=== PATIENT | female | born 1970 | race Caucasian/White ===

== ENCOUNTER 2021-12-22 11:46 | Outpatient (CLI) | payer OTHER, SELFPAY ==
--- NOTE | ~2021-12-22 | XR_ITS ---
XR chest 2V DATE: 12/22/2021 12:10 INDICATION: Dyspnea TECHNIQUE: PA and lateral views COMPARISON: None FINDINGS: Normal heart size. No hilar or mediastinal enlargement. No pulmonary infiltrate or consolid ation, pleural effusion or pulmonary vascular congestion or pneumothorax. Mild levoscoliosis of the thoracic spine. IMPRESSION: No active cardiopulmonary disease Reviewed, dictated and finalized at location B.
[2021-12-22 13:08] LABS: D Dimer 0.45 ug/mL (<0.48)
== END 2021-12-22 11:47 | disposition home or self-care (01) ==
PROVIDERS: PCP Physician Assistant; Visit Provider Physician Assistant
DX: R06.00 Dyspnea, unspecified (principal); M41.9 Scoliosis, unspecified
CPT/HCPCS: 36415; 71046; 85380

== ENCOUNTER 2023-11-18 12:55 | Outpatient (CLI) | payer BC, SELFPAY ==
[2023-11-18 19:53] LABS: SARS-CoV-2 RNA PCR Negative (Negative)
== END 2023-11-18 12:56 | disposition home or self-care (01) ==
LOC: ANHGOSHLAB 12:56
PROVIDERS: PCP Family Medicine; Visit Provider Family Medicine
DX: R53.83 Other fatigue (principal); R68.89 Other general symptoms and signs; Z20.822 Contact with and (suspected) exposure to COVID-19
CPT/HCPCS: 87635

== ENCOUNTER 2024-02-21 00:22 | Day surgery (SDC) | payer BC, SELFPAY ==
--- NOTE | 2023-12-10 14:34 | SUR.PREOP ---
Patient called to reschedule his procedure due to doctor being unavailable. Message left on pt's vm requesting a call back.
[2024-02-13 11:09] VITALS: BMI 37.5
[2024-02-21 10:08] VITALS: BP 152/96; PULSE 107; RESP 18; TEMP 36.1; O2SAT 98
--- NOTE | 2024-02-21 10:24 | WPDANESEPPF ---
Anes - Initial Pre Proc Eval Procedure: Operation Date: 02/21/24 11:30 Proposed Procedures p Esophagogastroduodenoscopy & Colonoscopy - Jaron Christiansen MD Date/Time: 02/21/24 10:24 Surgeon: Jaron Christiansen MD Pre Op Diagnosis: Other fecal abnormalities Patient Data Age: 53 Gender: F Height: 1.57 m Weight: 88.2 kg Last Vital Signs Temp 36.1 C L 02/21/24 10:08 Pulse 107 H 02/21/24 10:08 Resp 18 02/21/24 10:08 BP 152/96 H 02/21/24 10:08 Pulse Ox 98 02/21/24 10:08 O2 Del Method Room Air 02/21/24 10:08 Allergies Allergy/AdvReac Type Severity Reaction Status Date / Time shellfish derived Allergy Severe Anaphylaxis Verified 02/21/24 10:07 ERYTHROMYCINS Allergy Mild Rash Uncoded 02/21/24 10:07 Home Medications Medication Instructions Recorded Confirmed Type bupropion HCl 300 mg 24 hr tablet, 300 mg PO QAM #90 tabs 09/23/23 02/13/24 Rx extended release cetirizine 10 mg capsule (Zyrtec) 10 mg PO DAILY 09/23/23 02/21/24 History cholecalciferol (vitamin D3) 25 25 mcg PO DAILY 09/23/23 02/21/24 History mcg (1,000 unit) capsule epinephrine 0.3 mg/0.3 mL 0.3 mg (0.3 mL) IM ONCE #2 ea 09/23/23 02/21/24 Rx injection, auto-injector esomeprazole magnesium 20 mg 20 mg PO DAILY 09/23/23 02/21/24 History capsule,delayed release lisinopril 40 mg tablet 40 mg PO DAILY #90 tabs 09/23/23 02/21/24 Rx lutein 20 mg capsule 20 mg PO DAILY 09/23/23 02/21/24 History magnesium glycinate 200 mg PO DAILY 09/23/23 02/21/24 History mecobalamin (vitamin B12) 500 mcg 500 mcg PO DAILY 09/23/23 02/21/24 History chewable tablet mometasone 100 mcg/actuation HFA 1 puff inhalation BID #13 grams 09/23/23 02/21/24 Rx aerosol inhaler (Asmanex HFA) nystatin 100,000 unit/mL oral 5 ml buccal TID #473 mL 09/23/23 02/21/24 Rx suspension turmeric root extract 500 mg 500 mg PO DAILY 09/23/23 02/21/24 History capsule hydrochlorothiazide 25 mg tablet See Rx Instructions .Route 12/18/23 02/21/24 Rx .COMPLEX #90 tabs Patient hx anesthesia problems: none Family hx anesthesia problems: none Results Review: All pre-operative results and documents have been reviewed as part of the pre-operative evaluation. PMFSH Past Medical History Medical History Pyloric stenosis Surgical History Surgical History H/O section Hx of tonsillectomy Family History Family History Mother Asthma Depression Sibling Asthma Hypertension Depression Daughter Asthma Depression Grandparent Malignant neoplasm of prostate Skin cancer Diabetes mellitus Hypertension Depression Heart disease Social History Social History Smoking status: Never smoker Alcohol intake: current Alcohol use details: 4-5 drinks/ yr Substance use: never Substance use type: does not use Do You Feel Safe in your Home?: Yes Lack of Transportation: No Lack of Food: Never True Current Housing: I Have Housing Concerned About Future Housing: No Difficulty Paying Gas/Electric Bills: No Difficulty Paying for Meds: No Currently Unemployed: No Education: Bachelor's Degree Difficulty w/ Childcare or Family Care: No Living arrangements: with family Spiritual care concerns: No Anes - Eval Final PreProcedure Day of Procedure 02/21/24 10:24 Patient weight: normal Heart: regular rate and rhythm Lungs: clear to auscultation Airway: Mallampati scale class II Neurological: alert and oriented Last oral intake: >/= 8 hours ASA classification: II Emergent: no Anesthetic plan: proceed Anesthesia type and monitoring: general GIVS and standard monitoring Results Review: All pre-operative results and documents have been reviewed as part of the pr
[2024-02-21] MEDS: LACTATED RINGERS 1,000 ML 150 ML IV CONT (10:25)
--- NOTE | 2024-02-21 10:50 | PM.HPGS ---
History of Present Illness History of Present Illness Consent: Risks, benefits, and alternatives have been discussed and questions answered. Patient agrees to proceed with procedure. Chief complaint: Other fecal abnormalities Narrative: Mira Buitrago is a 53 year old female here for first egd/colonoscopy, + cologuard, also h/o pyloric stenosis as child s/p surgery, recently with choking after eating and abdominal discomfort with hiccups, using esomeprazole. Brother with h/o EoE Review of Systems Review of Systems: All systems reviewed & are unremarkable except as noted in HPI and below PMFSH Past Medical History Medical History (Updated 02/21/24 @ 10:52 by Jaron Christiansen MD) Pyloric stenosis Surgical History Surgical History H/O section Hx of tonsillectomy Family History Family History Mother Asthma Depression Sibling Asthma Hypertension Depression Daughter Asthma Depression Grandparent Malignant neoplasm of prostate Skin cancer Diabetes mellitus Hypertension Depression Heart disease Social History Social History Smoking status: Never smoker Alcohol intake: current Alcohol use details: 4-5 drinks/ yr Substance use: never Substance use type: does not use Do You Feel Safe in your Home?: Yes Lack of Transportation: No Lack of Food: Never True Current Housing: I Have Housing Concerned About Future Housing: No Difficulty Paying Gas/Electric Bills: No Difficulty Paying for Meds: No Currently Unemployed: No Education: Bachelor's Degree Difficulty w/ Childcare or Family Care: No Living arrangements: with family Spiritual care concerns: No Meds Home Medications and Allergies Home Medications Medication Instructions Recorded Confirmed Type bupropion HCl 300 mg 24 hr tablet, 300 mg PO QAM #90 tabs 09/23/23 02/13/24 Rx extended release cetirizine 10 mg capsule (Zyrtec) 10 mg PO DAILY 09/23/23 02/21/24 History cholecalciferol (vitamin D3) 25 25 mcg PO DAILY 09/23/23 02/21/24 History mcg (1,000 unit) capsule epinephrine 0.3 mg/0.3 mL 0.3 mg (0.3 mL) IM ONCE #2 ea 09/23/23 02/21/24 Rx injection, auto-injector esomeprazole magnesium 20 mg 20 mg PO DAILY 09/23/23 02/21/24 History capsule,delayed release lisinopril 40 mg tablet 40 mg PO DAILY #90 tabs 09/23/23 02/21/24 Rx lutein 20 mg capsule 20 mg PO DAILY 09/23/23 02/21/24 History magnesium glycinate 200 mg PO DAILY 09/23/23 02/21/24 History mecobalamin (vitamin B12) 500 mcg 500 mcg PO DAILY 09/23/23 02/21/24 History chewable tablet mometasone 100 mcg/actuation HFA 1 puff inhalation BID #13 grams 09/23/23 02/21/24 Rx aerosol inhaler (Asmanex HFA) nystatin 100,000 unit/mL oral 5 ml buccal TID #473 mL 09/23/23 02/21/24 Rx suspension turmeric root extract 500 mg 500 mg PO DAILY 09/23/23 02/21/24 History capsule hydrochlorothiazide 25 mg tablet See Rx Instructions .Route 12/18/23 02/21/24 Rx .COMPLEX #90 tabs Allergies Allergy/AdvReac Type Severity Reaction Status Date / Time shellfish derived Allergy Severe Anaphylaxis Verified 02/21/24 10:07 ERYTHROMYCINS Allergy Mild Rash Uncoded 02/21/24 10:07 Vital Signs Vital Signs - 24 hr 02/21/24 10:08 Temperature 97 F L Pulse Rate 107 H Respiratory Rate 18 Blood Pressure 152/96 H Pulse Oximetry 98 Oxygen Delivery Room Air Exam Const: General: comfortable and no acute distress HENMT: Face/Nose/Sinus: Normal nares present Eyes: General: appearance normal, both eyes and all related structures Neck: Neck: no JVD Resp: Auscultation: clear to auscultation bilaterally Cardio: Rate: regular rate Rhythm: regular rhythm GI: Inspection: non-distended GI Palp: Yes Soft to palpation Skin: General skin exam: normal colo
[2024-02-21 11:13] VITALS: BP 85/42; PULSE 89; RESP 18; O2SAT 99
--- NOTE | 2024-02-21 11:15 | SUR.OPER ---
EGD START 1053, END 1059 COLONOSCOPY START 1104, END 1112
[2024-02-21 11:23] VITALS: BP 87/39; PULSE 80; RESP 18; O2SAT 99
[2024-02-21 11:33] VITALS: BP 107/46; PULSE 74; RESP 18; O2SAT 100
== END 2024-02-21 11:44 | disposition home or self-care (01) ==
PROVIDERS: PCP Family Medicine; Visit Provider Internal Medicine Gastroenterology
PROC: 0DJ08ZZ Inspection of Upper Intestinal Tract, Via Natural or Artificial Opening Endoscopic (ICD-10-PCS; CPT 43235; principal; 2024-02-21 11:30)
DX: R19.5 Other fecal abnormalities (principal); Z87.19 Personal history of other diseases of the digestive system; D12.8 Benign neoplasm of rectum; D12.4 Benign neoplasm of descending colon; K64.8 Other hemorrhoids; K29.50 Unspecified chronic gastritis without bleeding; K20.90 Esophagitis, unspecified without bleeding; K21.9 Gastro-esophageal reflux disease without esophagitis; R13.19 Other dysphagia; R10.13 Epigastric pain; R06.6 Hiccough
CPT/HCPCS: 43239; 45385; 88305; J7120